=== PATIENT | female | born 1990 | race American Indian/Alaskan Native ===

== ENCOUNTER 2018-11-01 17:51 | Emergency (ER) | payer OTHER ==
[2018-11-01 18:26] VITALS: BP 129/87
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
[2018-11-01] MEDS ORDERED: IBUPROFEN 600 MG TAB PO ONE (20:06)
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
== END 2018-11-01 20:32 | disposition home or self-care (01) ==
LOC: ED 17:51
DX: S16.1XXA Strain of muscle, fascia and tendon at neck level, initial encounter (principal); S29.012A Strain of muscle and tendon of back wall of thorax, initial encounter; Z79.899 Other long term (current) drug therapy; V49.49XA Driver injured in collision with other motor vehicles in traffic accident, initial encounter; Y93.89 Activity, other specified; Y92.410 Unspecified street and highway as the place of occurrence of the external cause; Y99.8 Other external cause status

== ENCOUNTER 2018-11-04 20:14 | Emergency (ER) | payer SELFPAY ==
[2018-11-04 22:13] VITALS: BP 118/83
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
== END 2018-11-04 22:46 | disposition home or self-care (01) ==
LOC: ED 20:14
DX: S29.012D Strain of muscle and tendon of back wall of thorax, subsequent encounter (principal); S16.1XXD Strain of muscle, fascia and tendon at neck level, subsequent encounter; X58.XXXD Exposure to other specified factors, subsequent encounter
CPT/HCPCS: 99282